=== PATIENT | male | born 1985 | race Two or more races ===

== ENCOUNTER 2022-09-10 13:21 | Emergency (ER) | payer MEDICARE, OTHER ==
[~2022-09-10] VITALS: Ht 180.3 cm; Wt 68.0 kg
--- NOTE | 2022-09-10 13:53 | NUR ---
A/0 X4 AMBULATORY RESTING IN BED LOW FOLWERS. 17G STARTED ON THE LAC FLUIDS RUNNING BLOOD COLLECTED AND SENT TO LAB. PT'S SISTER ENDORSES FULL SYNCOPE EPISODE AND HYPOTENSION, WITH HEAD MAKING CONTACT WITH THE FLOOR. PT'S SISTER ALSO ENDORSES THAT THE PT HAD CONSUMED MARIJUANA BEFORE THE SYNCOPE EPISODE. MEDICAL HX INCLUDES SCHIZOPHRENIA TAKES HALOPERIDOL 15MG NIGHTLY VOMITIED 2 TIMES SINCE SYNCONPE EPISODE. PT CONNECTED TO BEDSIDE VITAL WNL
[2022-09-10] MEDS ORDERED: IV NS 0.9% 1,000 ML BAG IV ONE (14:00)
[2022-09-10] MEDS: IV NS 0.9% 1,000 ML BAG IV ONE ×2 (14:09→14:26)
[2022-09-10 14:15] LABS: BASOPHILS % (AUTO) 0.5 % (0.0-2.0); EOSINOPHILS % (AUTO) 0.8 % (0.0-6.0); HEMATOCRIT 47 % (39-51); HEMOGLOBIN 15.2 g/dL (13.5-17.5); LYMPHOCYTES # (AUTO) 2.6 K/uL (0.8-4.8); LYMPHOCYTES % (AUTO) 30.5 % (20.0-44.0); MEAN CORPUSCULAR HGB CONC 32 g/dl (31.0-36.0); MEAN CORPUSCULAR VOLUME 92 fL (80-96); MONOCYTES # (AUTO) 0.3 K/uL (0.1-1.30); NEUTROPHILS # (AUTO) 5.4 K/uL (1.8-8.9); NEUTROPHILS % (AUTO) 64.2 % (43.0-81.0); PLATELET COUNT (AUTO) 313 K/uL (150-450); RED BLOOD CELL COUNT(AUTO) 5.14 MIL/uL (4.5-6.0); WHITE BLOOD COUNT (AUTO) 8.5 K/uL (4.3-11.0)
[2022-09-10 14:39] LABS: CALCIUM, SERUM 9.9 mg/dL (8.5-10.1); CREATININE 1.1 mg/dL (0.6-1.3); POTASSIUM 3.6 mmol/L (3.5-5.1)
[2022-09-10 15:16] VITALS: BP 132/98
== END 2022-09-10 15:17 | disposition home or self-care (01) ==
LOC: ER 13:33
DX: R55 Syncope and collapse (principal)
CPT/HCPCS: 99284; 96360; 93005 ×2; 85025; 80048; 36415; J7030